=== PATIENT | female | born 1985 | race Caucasian/White ===

== ENCOUNTER 2020-05-27 10:29 | Emergency (ER) | payer OTHER ==
[2020-05-27 10:45] VITALS: O2SAT 100
[2020-05-27] MEDS ORDERED: TORAdol 30 mg Injection IV ONE (10:47)
[2020-05-27] MEDS ORDERED: Sodium Chloride 0.9% 1000 ML 1,000 ML IV STA (10:47)
[2020-05-27] MEDS ORDERED: Sodium Chloride 0.9% 1000 ML 1,000 ML ONE (10:57)
[2020-05-27] MEDS ORDERED: TORAdol 30 mg Injection ONE (10:57)
[2020-05-27 11:05] LABS: Hematocrit 43.2 % (35-47); Hemoglobin 14.4 gm/dl (12.0-16.0); Mean Cell Volume 90.8 fl (78-100); Mean Corpuscular Hemoglobin 30.3 pg (26-32); Mean Corpuscular Hgb Concent. 33.3 g/dl (32-36); Mean Platelet Volume 9.9 fl (7.5-11.0); Platelet Count 285 K/mm3 (150-450); Red Blood Count 4.76 M/mm3 (4.1-5.4); Red Cell Distribution Width 13.7 % (11.5-14.0); White Blood Count 13.6 K/mm3 (4.0-10.5)
[2020-05-27 11:08] LABS: Appearance CLEAR (CLEAR); Bilirubin NEGATIVE (NEGATIVE); Blood SMALL Ery/ul (0-5); Epithelial Cells RARE /HPF (FEW); Glucose NEGATIVE (NEGATIVE); Ketones NEGATIVE (NEGATIVE); Leukocyte Esterase NEGATIVE (NEGATIVE); Nitrite NEGATIVE (NEGATIVE); Protein,Urine Dip NEGATIVE (Negative); Specific Gravity 1.002 (1.005-1.025); Urobilinogen NEGATIVE mg/dL (0-1)
[2020-05-27 11:12] LABS: ALBUMIN 4.7 g/dL (3.5-5.0); ALKALINE PHOSPHATASE 75 U/L (38-126); ANION GAP 12.3 MEQ/L (5-15); BLOOD UREA NITROGEN 13 mg/dL (7-17); CHLORIDE 103 mmol/L (98-107); Calcium 9.7 mg/dL (8.4-10.2); Carbon Dioxide 26 mmol/L (22-30); EST GLOMERULAR FILTRATION RATE > 60.0 ML/MIN; Glucose 85 mg/dL (74-106); LIPASE 100 U/L (23-300); Potassium 3.8 mmol/L (3.5-5.1); SGOT/AST 20 U/L (14-36); SGPT/ALT 17 U/L (0-35); SODIUM 138 mmol/L (137-145); Total Protein 8.1 g/dL (6.3-8.2)
[2020-05-27] MEDS ORDERED: Zofran 4 MG/2 ML VIAL IV ONE (11:14)
[2020-05-27] MEDS ORDERED: Zofran 4 MG/2 ML VIAL ONE (11:14)
--- NOTE | 2020-05-27 11:25 | XRAY ---
Indication: Right flank pain. Multiple contiguous axial images obtained through the abdomen and pelvis without contrast as ordered. Comparison: None Lung bases are clear. Heart is not enlarged. Stomach is mildly distended with food/fluid. Normal appendix. Mild sigmoid diverticulosis. There has been partial hysterectomy and cholecystectomy. No free fluid/air. Hepatomegaly measuring 20.3 cm. Remaining liver, pancreas, spleen, adrenal glands, kidneys, ureters, bladder, and aorta appear unremarkable for noncontrast exam. Osseous structures intact with minimal lower lumbar degenerative changes no ventral or inguinal hernias. Impression: 1. Sigmoid diverticulosis and hepatomegaly. 2. Remaining CT abdomen/pelvis without contrast exam is negative.
--- NOTE | 2020-05-27 11:47 | ERPHSYRPT ---
- History of Present Illness Time Seen by Provider: 05/27/20 10:40 Historian: patient Exam Limitations: no limitations Patient Subjective Stated Complaint: pain in the right flank, RLQ, woke up approx 0230 with the pain Triage Nursing Assessment: Pt brought self to the ER, hypertensive, pain to right flank and right abdomen, rates pain 7/10, skin n/w/d, no history of kidney stones, bowel sounds heard in all 4, pulses normal Physician History: Patient is a 34-year-old female presents to our ED with complaints of right flank pain. Pain started approximately 2:30 AM this morning. Pain described as a constant ache. No radiation. Pain is moderate in intensity. Patient rates pain 7 out of 10. She has no history of kidney stones. No trauma. No fever. No hematuria or dysuria. Patient has a history of hypertension. She was just prescribed hydrochlorothiazide. Patient voices no other complaints concerns at this time. Timing/Duration: today Activities at Onset: none Quality: aching Abdominal Pain Onset Location: flank Pain Radiation: no radiation Severity of Pain-Max: moderate Severity of Pain-Current: moderate Modifying Factors: Improves With: nothing Associated Symptoms: No chest pain, No diaphoresis, No diarrhea, No fever/chills, No headache, No nausea, No vomiting Previous symptoms: no prior history Allergies/Adverse Reactions: No Known Drug Allergies Allergy (Verified 05/27/20 10:44) Travel Risk - International Travel Have you traveled outside of the country in past 3 weeks: No - Coronavirus Screening Are you exhibiting any of the following symptoms?: No Close contact with a COVID-19 positive Pt in past 14-21 Days: No - Review of Systems Constitutional: No Symptoms, No Fever, No Chills Eyes: No Symptoms Ears, Nose, & Throat: No Symptoms Respiratory: No Symptoms, No Cough, No Dyspnea Cardiac: No Symptoms, No Chest Pain, No Edema, No Syncope Abdominal/Gastrointestinal: No Symptoms, No Abdominal Pain, No Nausea, No Vomiting, No Diarrhea Genitourinary Symptoms: No Symptoms, No Dysuria Musculoskeletal: No Symptoms, No Back Pain, No Neck Pain Skin: No Symptoms, No Rash Neurological: No Symptoms, No Dizziness, No Focal Weakness, No Sensory Changes Psychological: No Symptoms Endocrine: No Symptoms Hematologic/Lymphatic: No Symptoms Immunological/Allergic: No Symptoms All Other Systems: Reviewed and Negative - Past Medical History Pertinent Past Medical History: No - Past Surgical History Gastrointestinal: Cholecystectomy Female Surgical History: Hysterectomy, Tubal Ligation - Social History Smoking Status: Never smoker Exposure to second hand smoke: No Drug Use: none Patient Lives Alone: No - Female History Hx Now: No (hysterectomy) - Nursing Vital Signs Nursing Vital Signs: Initial Vital Signs Temperature 98.6 F 05/27/20 10:35 Pulse Rate 94 H 05/27/20 10:35 Blood Pressure 163/111 05/27/20 10:35 O2 Sat by Pulse Oximetry 100 05/27/20 10:35 Pain Scale Pain Intensity 7 - Physical Exam General Appearance: no apparent distress, alert Eye Exam: PERRL/EOMI, eyes nml inspection Ears, Nose, Throat Exam: normal ENT inspection, pharynx normal, moist mucous membranes Neck Exam: normal inspection, non-tender, supple, full range of motion Respiratory Exam: normal breath sounds, lungs clear, No respiratory distress Cardiovascular Exam: regular rate/rhythm, normal heart sounds Gastrointestinal/Abdomen Exam: soft, other (Right side CVA. Abdominal exam benign.), No tenderness, No mass Pelvic Exam: not done Back Exam: normal inspection, normal range of motion, No CVA tenderness, No vertebral tenderness Extremity Exam: normal inspection, normal range of motion, pelvis stable Neurologic Exam: alert, oriented x 3, cooperative, normal mood/affect, nml cerebellar function, sensation nml, No motor deficits Skin Exam: normal color, warm, dry SpO2 Interpretation: normal SpO2: 100 O2 Delivery: Room Air - Course Nursing assessment & vital signs reviewed: Yes - CT Exams Abdomen/Pelvis CT Interpretation: Tele-radiologist Report (Moderate diverticulosis, hepatomegaly otherwise negative CT. No evidence of kidney stone.) Ordered Tests: Active Orders 24 hr Category Date Time Status IV Insertion STAT Care 05/27/20 10:47 Active ABDOMEN AND PELVIS W/0 CONTRAS [CT] Stat Exams 05/27/20 10:48 Completed CBC W DIFF Stat Lab 05/27/20 10:55 Completed CMP Stat Lab 05/27/20 10:55 Completed LIPASE Stat Lab 05/27/20 10:55 Completed Manual Differential NC Stat Lab 05/27/20 10:55 Completed UA W/RFX UR CULTURE Stat Lab 05/27/20 10:55 Completed Medication Summary Discontinued Medications Generic Name Dose Route Start Last Admin Trade Name Freq PRN Reason Stop Dose Admin Sodium Chloride 1,000 mls @ 999 mls/hr 05/27/20 10:47 05/27/20 11:00 Sodium Chloride 0.9% 1000 Ml IV 05/27/20 11:47 999 mls/hr .Q1H1M STA Administration Sodium Chloride Confirm 05/27/20 10:57 Sodium Chloride 0.9% 1000 Ml Administered 05/27/20 10:58 Dose 1,000 mls @ ud .ROUTE .STK-MED ONE Ketorolac Tromethamine 30 mg 05/27/20 10:47 05/27/20 11:00 Toradol 30 Mg Injection IV 05/27/20 10:48 30 mg STAT ONE Administration Ketorolac Tromethamine Confirm 05/27/20 10:57 Toradol 30 Mg Injection Administered 05/27/20 10:58 Dose 30 mg .ROUTE .STK-MED ONE Ondansetron HCl 4 mg 05/27/20 11:14 05/27/20 11:17 Zofran 4 Mg/2 Ml Vial IV 05/27/20 11:15 4 mg STAT ONE Administration Ondansetron HCl Confirm 05/27/20 11:14 Zofran 4 Mg/2 Ml Vial Administered 05/27/20 11:15 Dose 4 mg .ROUTE .STK-MED ONE Lab/Rad Data: Laboratory Result Diagrams 05/27/20 10:55 05/27/20 10:55 Laboratory Results 05/27/20 05/27/20 05/27/20 Range/Units 10:55 10:55 10:55 WBC 13.6 H (4.0-10.5) K/mm3 RBC 4.76 (4.1-5.4) M/mm3 Hgb 14.4 (12.0-16.0) gm/dl Hct 43.2 (35-47) % MCV 90.8 (78-100) fl MCH 30.3 (26-32) pg MCHC 33.3 (32-36) g/dl RDW 13.7 (11.5-14.0) % Plt Count 285 (150-450) K/mm3 MPV 9.9 (7.5-11.0) fl Sodium 138 (137-145) mmol/L Potassium 3.8 (3.5-5.1) mmol/L Chloride 103 (98-107) mmol/L Carbon Dioxide 26 (22-30) mmol/L Anion Gap 12.3 (5-15) MEQ/L BUN 13 (7-17) mg/dL Creatinine 0.90 (0.52-1.04) mg/dL Estimated GFR > 60.0 ML/MIN Glucose 85 (74-106) mg/dL Calcium 9.7 (8.4-10.2) mg/dL Total Bilirubin 0.20 (0.2-1.3) mg/dL AST 20 (14-36) U/L ALT 17 (0-35) U/L Alkaline Phosphatase 75 (38-126) U/L Serum Total Protein 8.1 (6.3-8.2) g/dL Albumin 4.7 (3.5-5.0) g/dL Lipase 100 (23-300) U/L Urine Color COLORLESS (YELLOW) Urine Appearance CLEAR (CLEAR) Urine pH 6.0 (5-6) Ur Specific [place] 1.002 (1.005-1.025) Urine Protein NEGATIVE (Negative) Urine Ketones NEGATIVE (NEGATIVE) Urine Blood SMALL (0-5) Lit/ul Urine Nitrite NEGATIVE (NEGATIVE) Urine Bilirubin NEGATIVE (NEGATIVE) Urine Urobilinogen NEGATIVE (0-1) mg/dL Ur Leukocyte Esterase NEGATIVE (NEGATIVE) Urine WBC (Auto) NONE (0-5) /HPF Urine RBC (Auto) NONE (0-2) /HPF U Epithel Cells (Auto) RARE (FEW) /HPF Urine Bacteria (Auto) NONE (NEGATIVE) /HPF Urine Culture Reflexed NO (NO) Urine Glucose NEGATIVE (NEGATIVE) mg/dL - Progress Progress: improved Progress Note: 05/27/20 11:52 Patient reassessed. Pain improved but not resolved. Patient appears somewhat uncomfortable. Advise hospitalization for pain control and observation. Patient declined. Patient states she will follow-up with her primary care doctor in 48 hours for reevaluation. Patient requesting discharge. In light of patient's essentially negative work-up for acute pathology we will discharge patient home. Counseled pt/family regarding: lab results, diagnosis, need for follow-up, rad results - Departure Departure Disposition: Home Clinical Impression: Flank pain, Microscopic hematuria, Diverticulosis, Hepatomegaly Condition: Stable Critical Care Time: No Referrals: DENNIS LINN PA [Primary Care Provider] - Additional Instructions: Discharge/Care Plan CARLA MIRANDA was seen on 05/27/20 in the Emergency Room. The patient was counseled regarding Diagnosis,Lab results, Imaging studies, need for follow up and when to return to the Emergency Room. Prescriptions given: Discharge Note I have spoken with the patient and/or caregivers. I have explained the patient's condition, diagnosis and treatment plan based on the information available to me at this time. I have answered the patient's and/or caregiver's questions and addressed any concerns. The patient and/or caregivers have as good understanding of the patient's diagnosis, condition and treatment plan as can be expected at this point. The vital signs have been stable. The patient's condition is stable and appropriate for discharge from the emergency department. The patient will pursue further outpatient evaluation with the primary care physician or other designated or consulting physician as outlined in the discharge instructions. The patient and/or caregivers are agreeable to this plan of care and follow-up instructions have been explained in detail. The patient and/or caregivers have received these instruction. The patient/and or caregivers are aware that any significant change in condition or worsening of symptoms should prompt an immediate return to this or the closest emergency department or call 911.
[2020-05-27 12:07] VITALS: BP 152/99; PULSE 92
[2020-05-27 16:21] LABS: Eosinophil 3 % (0.00-3.0); Lymphocytes 23 % (24-44); Monocyte 8 % (0.0-12.0); Neutrophils 66 % (36.0-66.0); Platelet Estimate NORMAL (NORMAL); Total Cells Counted 100
== END 2020-05-27 12:07 | disposition home or self-care (01) ==
LOC: ED 10:29
DX: R31.29 Other microscopic hematuria (principal); K57.90 Diverticulosis of intestine, part unspecified, without perforation or abscess without bleeding; R16.0 Hepatomegaly, not elsewhere classified
CPT/HCPCS: 36000; 36415; 74176; 80053; 81001; 83690; 85025; 96360; 96374; 96375; 99284; J1885; J2405